=== PATIENT | female | born 1985 | race Caucasian/White ===

== ENCOUNTER 2025-07-06 19:30 | Emergency (ER) | payer MEDICAID, SELFPAY ==
[2025-07-06 19:31] VITALS: BMI 25.2
[2025-07-06 20:28] VITALS: BP 114/78; PULSE 95; RESP 16; TEMP 37.1; O2SAT 99
[2025-07-06] MEDS: FAMOTIDINE 20 MG TABLET 40 MG PO (20:48)
[2025-07-06] MEDS: DICYCLOMINE 10 MG CAPSULE PO (20:49)
[2025-07-06] MEDS: ONDANSETRON ODT 4 MG TABRAP PO (20:49)
--- NOTE | 2025-07-07 01:40 | PD.EDNV ---
Nausea/Vomit./Diarrhea-RME/HPI General Chief complaint: Abdominal Pain Stated complaint: EPIGASTRIC PAIN, N/V/D Time Seen by Provider: 07/06/25 20:41 Arrival date/time: 07/06/25 19:30 39F with no significant PMH presents to ED with 2 days of N/V, epigastric pain, and non-bloody diarrhea, as well as some fevers/chills. Limitations: no limitations Related Data Home Medications ?Medication ?Instructions ?Recorded ?Confirmed tirzepatide (weight loss) 5 mg/0.5 5 mg subcut QWEEK 03/31/24 03/31/24 mL subcutaneous pen injector (Zepbound) Previous Rx's ?Medication ?Instructions ?Recorded acetaminophen 300 mg-codeine 15 mg 1 tab PO BID PRN pain #14 tabs 04/02/24 tablet acetaminophen 500 mg tablet 500 mg PO Q6H PRN fever or pain 04/02/24 #30 tabs docusate sodium 100 mg capsule 100 mg PO BID #60 caps 04/02/24 (Colace) doxycycline monohydrate 100 mg 100 mg PO BID #30 caps 04/02/24 capsule ibuprofen 800 mg tablet 800 mg PO Q8H PRN pain #30 tabs 04/02/24 metronidazole 500 mg tablet 500 mg PO Q12H #30 tabs 04/02/24 ondansetron 4 mg disintegrating 4 mg PO Q8H PRN nausea and 07/06/25 tablet vomiting #14 tabs Allergies Allergy/AdvReac Type Severity Reaction Status Date / Time Penicillins Allergy Mild Rash Verified 07/06/25 19:31 vancomycin Allergy Mild Rash Verified 07/06/25 19:31 Review of Systems Review of Systems Systems Reviewed: All systems reviewed, normal except as documented Gastrointestinal Gastrointestinal: Reports as per HPI, Reports abdominal pain, Reports diarrhea, Reports nausea and Reports vomiting Past Medical History Past Medical History NEUROLOGIC: Negative Neurological Disorders, Brain Tumor or Seizures CARDIAC: Negative Cardiac Disorders or Congestive Heart Failure RESPIRATORY: Negative Chronic Obstructive Pulmonary Disease (COPD) GASTROINTESTINAL: Positive Gastrointestinal Disorders and Gastroesophageal Reflux Disease; Negative Hepatitis or Colorectal Cancer GENITOURINARY: Negative Genitourinary Disorders, Renal Disease or Prostate Cancer REPRODUCTIVE: Positive Previous Pregnancies; Negative Breast Cancer, Endometriosis, Pelvic Inflammatory Disease, Testicular Cancer or Uterine Prolapse MUSCULOSKELETAL: Positive Fractures (right ankle); Negative Musculoskeletal Disorders or Bone Cancer ENDOCRINE: Negative Endocrine Disorders, Diabetes Mellitus Type 1 or Diabetes Mellitus Type 2 HEMATOLOGIC: Negative Blood Disorders or Anemia OTHER HISTORY: Positive Hospitalization (breast infection) and Chicken Pox; Negative Autoimmune Disease, Down Syndrome, Developmental Delay, Shingles, Falls, Blood Transfusions, Blood Transfusion Reaction, Anesthesia Reactions, Organ Transplant, Chemotherapy, Radiation Therapy, Hyperbaric Therapy, MRSA, VRSA, Vancomycin-Resistant Enterococci, Human Immunodeficiency Virus (HIV), Measles, Mumps, Rubella ([place]ish Measles), Pertussis, Clostridium Difficile, Cancer, Breast Cancer, Cervical Cancer, Colorectal Cancer, Lung Cancer, Ovarian Cancer, Prostate Cancer or Testicular Cancer Family History FAMILY HISTORY: Positive Family Cancer and Family Surgery; Negative Family Psychiatric Problems, Family Respiratory Disorders, Family Cardiac Disorders, Family Gastrointestinal Problems or Family Anesthesia Reaction Surgical History SURGICAL: Positive Lumpectomy (Left) and Section (x1); Negative Cardiac Surgery, Endocrine Surgery, Ear Surgery or Organ Transplant Social History SMOKING STATUS: Never smoker ED Exam General Limitations: Present no limitations General appearance: Present alert and in no apparent distress Head Head exam: Present atraumatic Neck Neck exam: Present normal inspection, full ROM and trachea midline Chest Chest inspection: Present normal inspection and symmetric chest wall rise Abdominal Exam Abdominal exam: Present soft and normal bowel sounds Abdominal tenderness: Present epigastrium and mild Psychiatric Psychiatric exam: Present normal affect and normal mood Skin Skin exam: Present warm, dry, intact and normal color Course Quality Measures none Orders Category Date Time Status Dicyclomine [Bentyl] Med 07/06/25 20:42 Discontinued 10 mg PO X1 ONE Famotidine [Pepcid] Med 07/06/25 20:42 Discontinued 40 mg PO X1 ONE Ondansetron Odt [Zofran Odt] Med 07/06/25 20:42 Discontinued 4 mg PO X1 ONE Vital Signs Vital signs: Vital Signs Temperature 98.7 F 07/06/25 20:28 Pulse Rate 95 07/06/25 20:28 Respiratory Rate 16 07/06/25 20:28 Blood Pressure 114/78 07/06/25 20:28 Pulse Oximetry (%) 99 07/06/25 20:28 Oxygen Delivery Method Room Air 07/06/25 20:28 O2 at 99% on RA and WNLs Nausea/Vomiting/Diarrhea MDM Narrative MDM Narrative:: 39F with no significant PMH presents to ED with 2 days of N/V, epigastric pain, and non-bloody diarrhea, as well as some fevers/chills. Physical exam reveals minimal epigastric tenderness. Patient is afebrile, calm, and alert. Likely viral gastroenteritis. PO challenge passed. Patient data External records reviewed:: [facility] previous records Clinical information provided by:: patient Social determinants that could affect healthcare access:: none Patient has the following chronic illnesses:: none How is presenting disease/condition affected by chronic disease/condition?: no chronic disease Evaluation data The following diagnostics were reviewed and interpreted by me:: other (specify) (none) Lab and/or radiology exams considered but not ordered:: not ordered Interpretation Summary: n/a Medications / Prescriptions Medications / Prescriptions considered but not ordered:: ordered Medication administrations:: Medication Administration History Discontinued Medications Dicyclomine HCl (Dicyclomine 10 Mg Capsule) 10 mg PO X1 ONE Stop: 07/06/25 20:43 Last Admin: 07/06/25 20:49 Dose: 10 mg Documented By: ANDRE Famotidine (Famotidine 20 Mg Tablet) 40 mg PO X1 ONE Stop: 07/06/25 20:43 Last Admin: 07/06/25 20:48 Dose: 40 mg Documented By: OA Ondansetron HCl (Ondansetron Odt 4 Mg Tabrap) 4 mg PO X1 ONE; Protocol Stop: 07/06/25 20:43 Last Admin: 07/06/25 20:49 Dose: 4 mg Documented By: ANDRE above Consultations Consultation(s) initiated? (list below): No Diagnosis Nausea Differential Diagnosis: traveler's diarrhea, food poisoning, gastroenteritis, clostridium difficile infection, drug-induced nausea and vomiting and dehydration Most likely diagnosis given after review of the tests above:: gastroenteritis Admission Indicated Admission indicated?: not indicated Admission Request Was there a request for admission?: No Disposition Plan Disposition Plan: Discharge Discharge Attestation Discharge Attestation: The patient and all family members were given an opportunity to ask questions and understood the discharge instructions. Discharge instructions specifically effects, indications for sooner follow up or return to the emergency department, and the expected course of current diagnosis. Patient condition: Stable Discharge Plan Plan Patient Disposition: HOME (Self Care) Discharge Disposition comment: Stable Prescriptions/Referrals Prescriptions/Med Rec: New ondansetron 4 mg tablet,disintegrating 4 mg PO Q8H PRN (Reason: nausea and vomiting) Qty: 14 0RF No Action Zepbound 5 mg/0.5 mL pen injector 5 mg SUBCUT QWEEK Patient Comments: 5 MG SUBCUTANEOUS ONCE A WEEK 28 DAYS acetaminophen-codeine 300-15 mg tablet 1 tab PO BID PRN (Reason: pain) Qty: 14 0RF acetaminophen 500 mg tablet 500 mg PO Q6H PRN (Reason: fever or pain) Qty: 30 0RF ibuprofen 800 mg tablet 800 mg PO Q8H PRN (Reason: pain) Qty: 30 0RF docusate sodium [Colace] 100 mg capsule 100 mg PO BID Qty: 60 0RF metronidazole 500 mg tablet 500 mg PO Q12H Qty: 30 0RF doxycycline monohydrate 100 mg capsule 100 mg PO BID Qty: 30 0RF Referrals: Aba Gutierrez MD [Primary Care Provider, Family Practice] - In 1 week Problem List Clinical Impression: Gastroenteritis Patient/Caregiver Discharge Instructions Education Materials: ED Diarrhea, Viral (Adult) Additional Instructions: Please follow-up with PCP within 24-48 hours and return immediately if symptoms worsen. Keep hydrated. Advance diet as tolerated. Print Language: Macedonian Stand Alone Forms: Work/School Release, Patient Portal Info Letter PA/FLOR Supervising Physician SU/FLOR Supervising Physician: Dr. Jimenez
== END 2025-07-06 23:14 | disposition home or self-care (01) ==
PROVIDERS: Emergency Provider Emergency Medicine; PCP Family Medicine
DX: K52.9 Noninfective gastroenteritis and colitis, unspecified (principal)
CPT/HCPCS: 99283; Q0162; A9270